=== PATIENT | male | born 1955 | race Caucasian/White ===

== ENCOUNTER 2017-01-09 10:09 | Emergency (ER) | payer BC, MEDICAID ==
[2017-01-09 10:20] VITALS: BMI 22.6
[2017-01-09 10:21] VITALS: BP 119/71; RESP 18; TEMP 97.6
--- NOTE | 2017-01-09 10:44 | C.PDOC ---
History Of Present Illness 61 y/o male presents to ED for evaluation of left lower back pain radiating down to left leg for the past several weeks. Pt states he was seen by his PMD 3 days ago and was given injection for pain, prescription for Valium and outpatient MRI, and referral for neurologist. Pt states that he has been taking the prescribed Valium but pain is worse today. Pt is requesting to have MRI done today. Otherwise, denies fall, injury, trauma, dysuria, hematuria, bowel/ bladder incontinence, urinary retention, abdominal pain, or fever. Time Seen by Provider: 01/09/17 10:22 Chief Complaint (Nursing): Back Pain History Per: Patient History/Exam Limitations: no limitations Onset/Duration Of Symptoms: Days Current Symptoms Are (Timing): Still Present Quality Of Discomfort: "Pain" Previous Symptoms: Back Pain. denies: Prior Injury, Prior Surgery Associated Symptoms: None. denies: Incontinence, New Weakness, New Numbness Past Medical History Reviewed: Historical Data, Nursing Documentation, Vital Signs Vital Signs: Last Vital Signs Temp 97.6 F 01/09/17 10:20 Pulse 78 01/09/17 11:14 Resp 18 01/09/17 11:14 BP 119/71 01/09/17 11:14 Pulse Ox 98 01/09/17 11:14 - Medical History PMH: Hypothyroidism Surgical History: Tonsillectomy - [facility] COLONOSCOPY (08/20/14) ESOPHAGOGASTRODUODENOSCOPY [EGD] W/CLOSED BIOPSY (08/20/14) Family History: States: Unknown Family Hx - Social History Hx Tobacco Use: No Hx Alcohol Use: No Hx Substance Use: No - Immunization History Hx Tetanus Toxoid Vaccination: No Hx Influenza Vaccination: No Hx Pneumococcal Vaccination: No Review Of Systems Except As Marked, All Systems Reviewed And Found Negative. Constitutional: Negative for: Fever, Chills Gastrointestinal: Negative for: Abdominal Pain Genitourinary: Negative for: Dysuria, Frequency, Incontinence, Hematuria Musculoskeletal: Positive for: Back Pain (left lower), Leg Pain (left) Neurological: Negative for: Weakness, Numbness Physical Exam - Physical Exam Appears: Non-toxic, Other (In mild pain) Skin: Normal Color, Warm, Dry Head: Atraumatic, Normacephalic Eye(s): bilateral: Normal Inspection Oral Mucosa: Moist Neck: Supple Cardiovascular: Rhythm Regular, No Murmur Respiratory: Normal Breath Sounds, No Rales, No Rhonchi, No Wheezing Gastrointestinal/Abdominal: Soft, No Tenderness Back: No CVA Tenderness, No Vertebral Tenderness, Paraspinal Tenderness (left paralumbar) Extremity: Normal ROM Neurological/Psych: Oriented x3, Normal Speech Gait: Steady ED Course And Treatment O2 Sat by Pulse Oximetry: 100 (RA) Pulse Ox Interpretation: Normal Progress Note: Pt was given Toradol IM, and Prednisone PO. On reassessment, patient is resting comfortably, with improvement of back pain. Patient remains afebrile, with no bony tenderness, extremity numbness or weakness, or abdominal pain. Patient is ambulatory in the emergency department with no signs of discomfort. Patient was advised to follow up with physician/clinic in 1-2 days. Disposition Counseled Patient/Family Regarding: Diagnosis, Need For Followup, Rx Given - Disposition Referrals: Bernard Hinkle MD [Primary Care Provider] - Disposition: HOME/ ROUTINE Disposition Time: 11:00 Condition: STABLE Additional Instructions: FOLLOW UP WITH YOUR DOCTOR IN 1-2 DAYS FOLLOW UP WITH NEUROLOGY AND SCHEDULE YOUR OUTPATIENT MRI INSTRUCTED BY YOUR DOCTOR USE MEDICATIONS DIRECTED - TAKE NAPROSYN WITH THE VALIUM YOU ALREADY HAVE RETURN TO ER IF SYMPTOMS WORSEN Prescriptions: Naproxen 375 mg PO BID PRN #25 tablet PRN Reason: pain predniSONE [predniSONE Tab] 40 mg PO DAILY #8 tab Instructions: Sciatica (ED), Lumbar Radiculopathy (ED) Forms: [facility] (Grenadian) Print Language: MALTESE - POA Present On Arrival: None - Clinical Impression Clinical Impression: Left sided sciatica - Scribe Statement The provider has reviewed the documentation as recorded by the Brenton Maravilla All medical record entries made by the Brenton were at my direction and personally dictated by me. I have reviewed the chart and agree that the record accurately reflects my personal performance of the history, physical exam, medical decision making, and the department course for this patient. I have also personally directed, reviewed, and agree with the discharge instructions and disposition.
[2017-01-09 11:15] VITALS: PULSE 78
[2017-01-09 12:02] VITALS: O2SAT 100
== END 2017-01-09 11:15 | disposition home or self-care (01) ==
LOC: SUPCPDRO 10:09 → C.ER 10:09
DX: M54.32 Sciatica, left side (principal); E03.9 Hypothyroidism, unspecified
CPT/HCPCS: 96372; 99283; J1885